=== PATIENT | male | born 1965 | race Caucasian/White ===

== ENCOUNTER 2016-08-02 14:42 | Emergency (ER) | payer BC ==
[~2016-08-02 14:42] MED LIST: ADVIL PO; BACDS PO; BENICAR40 PO; CRESTOR20 MG PO; DSS PO; GLUCOPHAGE1000 MG PO; INVOKANA300 MG PO; JANUVIA50 PO; PCET PO; WELLBUTRIN200 MG PO
[2016-08-02 15:23] LABS: BASOPHILS 0.4 %; BASOPHILS ABSOLUTE 0.03 10/3/uL (0.0-0.16); EOSINOPHILS ABSOLUTE 0.14 10/3/uL (0.0-0.53); ER CBC TAT 0 Hrs 11 Mins; IMMATURE GRANULOCYTES 0.3 %; IMMATURE GRANULOCYTES ABSOLUTE 0.02 10/3/uL (0.0-0.11); LYMPHOCYTES 22.5 %; LYMPHOCYTES ABSOLUTE 1.61 10/3/uL (0.67-4.30); MEAN CORPUS HGB CONC 36.3 g/dL (32.0-36.0); MEAN CORPUSCULAR HEMOGLOB 31.4 pg (26.0-34.0); MEAN PLATELET VOLUME 10.4 fL (9.2-13.0); MONOCYTES 8.5 %; MONOCYTES ABSOLUTE 0.61 10/3/uL (0.21-1.20); NEUTROPHILS 66.3 %; NEUTROPHILS ABSOLUTE 4.73 10/3/uL (2.02-8.40); PLATELET COUNT 181 10/3/uL (150-400); RBC DISTRIBUTION WIDTH 12.6 % (12.0-16.0); RED CELL COUNT 6.56 10/6/uL (4.7-6.1); WHITE BLOOD CELLS 7.1 10/3/uL (4.5-10.5)
[2016-08-02 15:26] LABS: HEMATOCRIT 56.7 % (40.0-51.0); HEMOGLOBIN 20.6 g/dL (13.6-17.8); MEAN CORPUSCULAR VOLUME 86.4 fL (80-100)
[2016-08-02 15:28] LABS: MANUAL DIFF NO %
[2016-08-02 15:42] LABS: CALCIUM, SERUM 9.9 MG/DL (8.5-10.4); CHEST PAIN PROFILE TAT 0 Hrs 30 Mins; CHLORIDE, SERUM 106 MMOL/L (96-112); CO2 (CARBON DIOXIDE) 25 MMOL/L (24-34); CREATININE 1.52 MG/DL (0.70-1.30); GFR AFRICAN AMERICAN 60 ML/MIN (>=60); GFR NON AFRICAN AMERICAN 52 ML/MIN (>=60); POTASSIUM, SERUM 4.3 MMOL/L (3.5-5.3); SODIUM, SERUM 142 MMOL/L (135-148); TROPONIN I <0.02 NG/ML (<0.05)
[2016-08-02 15:50] LABS: BUN (BLOOD UREA NITROGEN) 16 MG/DL (6-23); GLUCOSE, SERUM 166 MG/DL (60-99)
[2016-08-02] MEDS ORDERED: INVOKANA300 MG PO (16:39)
[2016-08-02] MEDS ORDERED: TESTOST CYP100 MG/ML IM (16:39)
[2016-08-02] MEDS ORDERED: JANUMET XR 50-1 EAC1 PO (16:40)
[2016-08-02] MEDS ORDERED: TRINTELLIX20 MG PO (16:40)
[2016-08-02] MEDS ORDERED: BENICAR HCT1 TA2 PO (16:40)
[2016-08-02] MEDS ORDERED: ARIMIDEX1 PO (16:41)
[2016-08-02] MEDS ORDERED: ADVIL PO (16:41)
[2016-08-02 16:45] LABS: INTERNATIONAL NORMAL RATI 1.1 UNITS (-); PROTIME (NOT ORD) 14.3 SEC (12.0-14.5)
[2016-08-02 16:46] LABS: PARTIAL THROMBO TIME 31.3 SEC (22.5-37.2)
[2016-08-02 16:56] LABS: PLATELET ESTIMATE ADQ (ADEQUATE)
[2016-08-02 17:03] LABS: RBC MORPHOLOGY NORM (NORMAL)
== END 2016-08-02 19:12 | disposition home or self-care (01) ==
LOC: ER 14:42
PROVIDERS: Emergency Medicine
DX: R07.9 Chest pain, unspecified (principal); I12.9 Hypertensive chronic kidney disease with stage 1 through stage 4 chronic kidney disease, or unspecified chronic kidney disease; N18.9 Chronic kidney disease, unspecified; F15.90 Other stimulant use, unspecified, uncomplicated; F32.9 Major depressive disorder, single episode, unspecified; E11.9 Type 2 diabetes mellitus without complications; Z88.8 Allergy status to other drugs, medicaments and biological substances; Z79.899 Other long term (current) drug therapy
CPT/HCPCS: 71020; 76705; 80048; 83690; 83735; 84484; 85025; 85610; 85730; 93005; 99285; A9270-GY